=== PATIENT | male | born 1985 | race Caucasian/White ===

== ENCOUNTER 2016-11-09 13:50 | Inpatient (IN) | payer OTHER ==
[~2016-11-09] VITALS: Ht 180.3 cm; Wt 74.2 kg
[2016-11-09 15:20] VITALS: BP 121/58; PULSE 81; RESP 17; TEMP 97.8; O2SAT 98
[2016-11-09] MEDS ORDERED: LORazepam 2 MG/ML VIAL IM PRN (17:15)
[2016-11-09] MEDS ORDERED: MAGNESIUM HYDROXIDE SUSP 30 ML CUP PO PRN (17:15)
[2016-11-09] MEDS ORDERED: ALUMINUM/MAGNESIUM/SIMETH 30 ML CUP PO PRN (17:15)
[2016-11-09 20:45] VITALS: BP_SYST 116; BP_SYST 119; BP_DIAS 57; BP_DIAS 72; PULSE 73; PULSE 98; RESP 16; RESP 18; TEMP 98; TEMP 98.1; O2SAT 98; O2SAT 99
[2016-11-09] MEDS: ACETAMINOPHEN 325 MG TAB PO PRN (20:53)
[2016-11-09] MEDS: LORazepam 1 MG TAB PO PRN (20:54)
[2016-11-09] MEDS: REMOVE OLD NICOTINE PATCH T-DERMAL SCH (21:00)
[2016-11-10 06:35] VITALS: BP 100/61; PULSE 76; RESP 18; TEMP 97.3; O2SAT 100
[2016-11-10 07:59] LABS: ANION GAP 6 MEQ/L (5-15); BICARBONATE 27.8 MEQ/L (21.0-32.0); BLOOD UREA NITROGEN 14 MG/DL (7-18); CHLORIDE 104 MEQ/L (98-107); GLOMERULAR FILTRATION RATE 104 ML/MIN (>89); SODIUM (NA) 138 MEQ/L (136-145)
[2016-11-10 08:01] LABS: HDL CHOLESTEROL 51.1 MG/DL (40.0-60.0); LDL CHOLESTEROL 91 MG/DL (0-99)
[2016-11-10] MEDS: NICOTINE 21 MG/24 HR PATCH T-DERMAL SCH (08:23)
--- NOTE | 2016-11-10 09:59 | HHI.HP ---
Provisional Diagnosis Admission Date Nov 09, 2016 at 13:50 [place] I. Adjustment disorder with depressed mood History of substance abuse. [place] II. Passive-dependent trait [place] III. Please see the emergency room evaluation from [facility] [place] IV. Moderate stress difficulty coping [place] V. GAF of 45 Certification of Person's Competence To Provide Express and Informed Consent I have personally examined Marlon Cano , a person being served at [facility] on, Nov 10, 2016 09:50. Express and informed consent means consent voluntarily given in writing, by a competent person, after sufficient explanation and disclosure of the subject matter involved to enable the person to make a knowing and willful decision without any element of force, fraud, deceit, duress, or other form of constraint or coercion. This person is 18 years of age or older, is not now known to be incompetent to consent to treatment with a guardian advocate, and does not have a health care surrogate or proxy currently making medical treatment decisions. I have found this person to be one of the following: [x] Competent to provide express and informed consent, as defined above, for voluntary admission to this facility and is competent to provide express and informed consent for treatment. He/she has the consistent capacity to make well reasoned, willful, and knowing decisions concerning his or her medical or mental health treatment. The person fully and consistently understands the purpose of the admission for examination/placement and is fully capable of personally exercising all rights assured under [place] Incompetent to provide express and informed consent to voluntary admission, and this is incompetent to provide express and informed consent to treatment. The person must be transferred to involuntary status and a petition for a guardian advocate filed with the Circuit Court. [] Refusing to provide express and informed consent to voluntary admission but is competent to provide express and informed consent for treatment. The person must be discharged or transferred to involuntary status. Form shall be completed within 24 hours of a person's arrival at the receiving facility and filed in the clinical record of each person: 1. Admitted on a voluntary basis 2. Permitted to provide express and informed consent to his/her own treatment 3. Allowed to transfer from involuntary to voluntary status 4. Prior to permitting a person to consent to his or her own treatment after having been previously found incompetent to consent to treatment. History of Present Illness Capacity: Has Capacity HPI This is a 31-year-old white male who was admitted under Danie act from [place] because of feeling depressed. Patient claimed that he accidentally hurt his right thumb and they had to amputate part of it few days ago and he went to the hospital because he thought it was infected. 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 Patient denies any suicidal ideation intentions or plan denied any auditory or visual hallucinations denied any alcohol or drug use and/or abuse he does admit to history of alcohol and drug abuse and has been through the rehabilitation 3 times in the past. He also was released from the penitentiary after one year for grand theft but he is clean for past several months. He is worried about losing his job. His mother of cancer 2 years ago. Patient is cooperative and willing to sign voluntary and take medication. And participate in treatment Review of Systems Except as stated in HPI: all other systems reviewed are Neg Psychiatric: COMPLAINS OF: Depression Past Psych History Psychological trauma history Patient denied any physical verbal or sexual abuse growing up Violence risk - others (6 mos) Patient denies Violence risk - self (6 mos) Patient denies any suicidal ideation intentions or plan Substance Abuse History Drugs/Alcohol past 12 months Does admit to occasional alcohol and drug abuse Past Family Social History Coded Allergies: No Known Allergies (Unverified , 11/09/16) Current Medications Medications (Trade) Dose Ordered Sig/Dung Route Start Time Stop Time Status Last Admin (Ativan) 1 mg Q6H PRN PO 11/09/16 17:15 11/09/16 20:54 (Ativan Inj) 1 mg Q6H PRN IM 11/09/16 17:15 (Tylenol) 650 mg Q4H PRN PO 11/09/16 17:15 11/09/16 20:53 (Milk Of Magnesia Liq) 30 ml DAILY PRN PO 11/09/16 17:15 (Mag-Al Plus Susp Liq) 30 ml Q6H PRN PO 11/09/16 17:15 (Habitrol 21 Mg Patch.24 Hr) 1 patch DAILY T-DERMAL 11/10/16 09:00 11/10/16 08:23 Miscellaneous Information 1 HS T-DERMAL 11/09/16 21:00 Family History Positive for depression and alcoholism in his brother Social History Patient was born in [place]. He has one older brother. Patient is the youngest in the family. Being the youngest he was closer to his mother and somewhat spoiled. Patient denied any physical verbal or sexual abuse growing up. He quit in ninth grade because he found a job is planning on getting his GED. 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 He has not been but he has 2 children out of wedlock. He started to do alcohol and drug at young age and has been through the rehabilitation 3 times he claimed that he also liked cocaine and opiates. He was in the penitentiary for one year for grand theft and released in 2016. And he has been clean. He has been hospitalized at [facility]. Denied any suicide attempt. Patient's Strengths (min. 2) Patient is cooperative willing to sign voluntary and take medication Physical Exam Patient denied any physical complaint other than the right thumb. He was medically cleared and was [place] acted to come here for depression Vital Signs Vital Signs Date Time Temp Pulse Resp B/P Pulse Ox O2 Delivery O2 Flow Rate FiO2 11/10/16 06:35 97.3 76 18 100/61 100 Mental Status Examination This is a 31-year-old white male who looks about the same as his stated age was alert oriented 3 cooperative casually dressed his speech was slow without any evidence of loose associations or flights of ideas or pressure speech his mood was described as frustrated for being here he denied any suicidal ideation intentions or plan he claimed that the Celexa has helped him in the past and willing to take it. Denied any auditory or visual hallucinations. Denied any paranoid delusion. He seems to be of average intelligence with fairly good memory his insight is fair and his judgment seems to be okay on hypothetical situation. His gait is normal his language is normal fund of knowledge is average Assessment & Plan Problem List: (1) Adjustment disorder with depressed mood ICD Code: F43.21 Assessment & Plan Estimated LOS:3 days. This is a 31-year-old white to male who was admitted under [facility] because he was feeling depressed following the loss of his right thumb as an accident. Patient is a construction site crossing guard. He is worried about losing his job. He denied any suicidal ideation intentions or plan. Willing to take the medication and follow-up as an outpatient once stable and discharge. Admitted to observe evaluate and treat. Patient is willing to sign voluntary. Patient will participate in all the therapeutic activity on the floor. We will start him on the Celexa. Side effect another alternative treatment were explained to the patient. media services director to assist in aftercare and discharge planning. We will have LMD take a look at his physical problem especially right thumb Request HC Surrog/Guard Advoc?: No Huey Edge MD Nov 10, 2016 09:59
[2016-11-10] MEDS: CITALOPRAM HYDROBROMIDE 20 MG TAB PO SCH (10:57)
[2016-11-10] MEDS: ACETAMINOPHEN 325 MG TAB PO PRN (10:58)
--- NOTE | 2016-11-10 14:51 | PD.CONS ---
HPI Service [facility] Consult Requested By Psychiatry team Reason for Consult Medical management right thumb amputation Primary Care Physician Unknown Diagnoses: History of Present Illness Patient is a 31-year-old white male who came in under [facility] act from [facility] secondary to feeling depressed. Patient states that he accidentally hurt his right thumb and was seen in [facility]. States they try to save the right thumb by putting him on IV antibiotics but unfortunately to have the amputated due to necrosis. Amputation was done a few days back and sutures where placed. He was given Bactrim on discharge at [facility] to be taken for 7 days. He was discharged from [facility] 11/06/16, but he was too concerned about his right thumb that he went to [facility] for evaluation. 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 Patient denies any suicidal ideation intentions or plan denied any auditory or visual hallucinations denied any alcohol or drug use and/or abuse he does admit to history of alcohol and drug abuse and has been through the rehabilitation 3 times in the past. He also was released from the longterm after one year for grand theft but he is clean for past several months. He is worried about losing his job. His mother of cancer 2 years ago. He is now admitted to inpatient psychiatry unit for further evaluation. Consulted for medical management. Patient seen today. He is concerned about his right thumb. Complaints of occasional phantom pain, requesting for cast cover. No erythema or drainage noted on the wound site, sutures intact. Patient reports history of IV drug abuse, hep C. Otherwise, denies SOB/ dyspnea. Denies chest pain, palpitations , headaches, dizziness. Denies fevers, chills, n/v/d. Review of Systems Other Negative except for what is noted on history of present illness. Past Family Social History Allergies: Coded Allergies: No Known Allergies (Unverified , 11/09/16) Past Medical History Depression Back pain IV drug abuse Hepatitis C Past Surgical History Status post right thumb amputation I and D abscess from heroin use Reported Medications Celexa Nicotine patch Active Ordered Medications Current Medications Medications (Trade) Dose Ordered Sig/Dung Route Start Time Stop Time Status Last Admin (Ativan) 1 mg Q6H PRN PO 11/09/16 17:15 11/09/16 20:54 (Ativan Inj) 1 mg Q6H PRN IM 11/09/16 17:15 (Tylenol) 650 mg Q4H PRN PO 11/09/16 17:15 11/10/16 10:58 (Milk Of Magnesia Liq) 30 ml DAILY PRN PO 11/09/16 17:15 (Mag-Al Plus Susp Liq) 30 ml Q6H PRN PO 11/09/16 17:15 (Habitrol 21 Mg Patch.24 Hr) 1 patch DAILY T-DERMAL 11/10/16 09:00 11/10/16 08:23 Miscellaneous Information 1 HS T-DERMAL 11/09/16 21:00 (CeleXA) 20 mg DAILY PO 11/10/16 10:00 11/10/16 10:57 (Naprosyn) 375 mg Q8H PRN PO 11/10/16 15:30 (Bactrim Ds 800-160 Mg) 1 tab Q12H PO 11/11/16 09:00 11/17/16 08:59 Family History None Social History Reports occasional alcohol use Current day smoker 1-2 packs per day, last use about 3 weeks ago IV drug use, substance use cocaine, opiates, marijuana - last used 3 weeks ago cocaine shot Physical Exam Vital Signs Vital Signs Date Time Temp Pulse Resp B/P Pulse Ox O2 Delivery O2 Flow Rate FiO2 11/10/16 06:35 97.3 76 18 100/61 100 11/09/16 20:45 98.1 73 16 116/57 99 11/09/16 15:20 97.8 81 17 121/58 98 Physical Exam GENERAL: This is a well-nourished, well-developed patient, in no apparent distress. SKIN: No rashes, ecchymoses or lesions. Cool and dry. HEAD: Atraumatic. Normocephalic. No temporal or scalp tenderness. EYES: Pupils equal round and reactive. Extraocular motions intact. No scleral icterus. No injection or drainage. ENT: Nose without bleeding. Throat without erythema. Uvula midline. Airway patent. NECK: Trachea midline. No JVD or lymphadenopathy. Supple, nontender, no meningeal signs. CARDIOVASCULAR: Regular rate and rhythm without murmurs, gallops, or rubs. RESPIRATORY: Clear to auscultation. Breath sounds equal bilaterally. No wheezes , rales, or rhonchi. GASTROINTESTINAL: Abdomen soft, non-tender, nondistended. No guarding. MUSCULOSKELETAL: Extremities without clubbing, cyanosis, or edema. No joint tenderness, effusion, or edema noted. No calf tenderness. Negative Homans sign bilaterally. Right thumb without erythema, or edema, sutures CDI, nontender to palpation surrounding areas. NEUROLOGICAL: Awake and alert. Motor and sensory grossly within normal limits. Five out of 5 muscle strength in all muscle groups. Normal speech. Laboratory Laboratory Tests Test 11/10/16 06:41 Sodium Level 138 Potassium Level 4.0 Chloride Level 104 Carbon Dioxide Level 27.8 Anion Gap 6 Blood Urea Nitrogen 14 Creatinine 0.86 Estimat Glomerular Filtration 104 Rate Random Glucose 86 Calcium Level 9.0 Triglycerides Level 98 Cholesterol Level 162 LDL Cholesterol 91 HDL Cholesterol 51.1 Cholesterol/HDL Ratio 3.17 Result Diagram: 11/10/16 0641 Assessment and Plan Problem List: (1) Adjustment disorder with depressed mood ICD Code: F43.21 Status: Acute (2) S/P amputation of thumb ICD Code: Z89.019 Status: Acute Assessment and Plan Patient is a 31-year-old male who came in under [facility] act from [facility] secondary to suicidal ideation. He is status post right thumb amputation for [facility]. Admitted to inpatient psychiatry unit. Consulted for medical management. Adjustment disorder with depressed mood - managed by psychiatry team Right thumb amputation - sutures intact, DC sutures in 10 days. - [employer] service for splint - Wound care - Naprosyn for pain. - Bactrim DS 1 tab twice a day 7 days Hyperglycemia. A1c pending Transaminitis secondary to hepatitis C. Monitor Polysubstance abuse. Patient counseled Tobacco use - counseled. Nicotine patch. Thank you for this consultation. We will follow patient with you. Written by Tracie Cortez, acting as scribe for Dr. Emmanuel on 11/10/16 at 15:29. The documentation accurately reflects the work performed [id number] by me on at 16:44. Code Status Full code Discussed Condition With Patient, nursing Tracie Miguel Nov 10, 2016 14:51 Jerome Emmanuel MD Nov 10, 2016 16:38
[2016-11-10] MEDS ORDERED: NAPROXEN 375 MG TAB PO PRN (15:30)
[2016-11-10] MEDS ORDERED: SULFAMETHOXAZOLE-TRIMETHOPRIM DS 800-160 MG TAB PO ONE (15:30)
[2016-11-10 15:56] LABS: HEMOGLOBIN A1a 1.2 %; HEMOGLOBIN A1b 0.9 %; HEMOGLOBIN Ao 84.4 %; HEMOGLOBIN F 1.4 %; HEMOGLOBIN LA1C 1.9 %; HEMOGLOBIN P3 3.8 %
[2016-11-10] MEDS: LORazepam 1 MG TAB PO PRN (16:04)
[2016-11-10 19:29] VITALS: BP 117/60; PULSE 64; RESP 18; TEMP 98.5; O2SAT 100
[2016-11-10] MEDS: REMOVE OLD NICOTINE PATCH T-DERMAL SCH (21:00)
[2016-11-11] MEDS: LORazepam 1 MG TAB PO PRN (00:02)
[2016-11-11 05:36] VITALS: BP 108/67; PULSE 74; RESP 16; TEMP 98.2; O2SAT 96
[2016-11-11] MEDS: NICOTINE 21 MG/24 HR PATCH T-DERMAL SCH (09:00)
[2016-11-11] MEDS: CITALOPRAM HYDROBROMIDE 20 MG TAB PO SCH (09:00)
[2016-11-11] MEDS ORDERED: SULFAMETHOXAZOLE-TRIMETHOPRIM DS 800-160 MG TAB PO SCH (09:00)
[2016-11-11] MEDS: REMOVE OLD NICOTINE PATCH T-DERMAL SCH (09:54)
--- NOTE | 2016-11-11 10:06 | HHI.DS ---
Psychiatry Discharge Summary Inpatient Psychiatric care?: Yes Advance Directive: No Reason Not Provided: refused Mental Health AdvanceDirective: No Health Care Proxy: No Admission Admission Date Nov 09, 2016 at 13:50 Admission Diagnosis: (1) Adjustment disorder with depressed mood ICD Code: F43.21 GAF Score: 45 Brief History This is a 31-year-old white male who was admitted under Danie act from [place] because of feeling depressed. Patient claimed that he accidentally hurt his right thumb and they had to amputate part of it few days ago and he went to the hospital because he thought it was infected. 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 Patient denies any suicidal ideation intentions or plan denied any auditory or visual hallucinations denied any alcohol or drug use and/or abuse he does admit to history of alcohol and drug abuse and has been through the rehabilitation 3 times in the past. He also was released from the penitentiary after one year for grand theft but he is clean for past several months. He is worried about losing his job. His mother of cancer 2 years ago. Patient is cooperative and willing to sign voluntary and take medication. And participate in treatment Tobacco Use In Past 30 Days: 5 or More Cigarettes/Day Alcohol Use: 4 or More Times Per Week Hospital Course Patient was admitted was started on supportive treatment. Patient kept to himself. Most of the time. No behavior or management problem reported. Patient claimed that he has been depressed because of the loss of his thumb but denied any suicidal ideation intentions or plan. Denied any auditory or visual hallucinations. He is not abusing any drugs at the present time he wants to go home willing to follow-up as an outpatient and abstain from any substance use and/or abuse at that point arrangements were made for him to be discharged Results Blood Pressure 108 / 67 Vital Signs Date Time Temp Pulse Resp B/P Pulse Ox O2 Delivery O2 Flow Rate FiO2 11/11/16 05:36 98.2 74 16 108/67 96 Laboratory Results Test 11/10/16 06:41 Hemoglobin A1c 6.0 % (4.3-6.0) Triglycerides Level 98 MG/DL (42-150) Cholesterol Level 162 MG/DL (120-200) LDL Cholesterol 91 MG/DL (0-99) HDL Cholesterol 51.1 MG/DL (40.0-60.0) Summary of Major Lab Results Nothing significant Summary of Procedures None Imaging None Pending results at discharge: No Medications # of Antipsychotic meds at D/C: 0 Approp Antipsych med options 1 - Minimum of three failed multiple trials of monotherapy. 2 - Documented plan to taper to monotherapy due to previous use of multiple meds OR cross-taper in progress at D/C. 3 - Documentation of augmentation of Clozapine. 4 - Justification other than those listed in allowable values 1-3, document here : Discharge Discharge Date: Nov 11, 2016 Discharge Diagnosis: (1) Adjustment disorder with depressed mood Diagnosis: Principal ICD Code: F43.21 Mental Status Exam at Disch Patient was alert ordered at 3 cooperative casually dressed. His speech was clear spontaneous without any evidence of loose associations. He denied any suicidal ideation intentions or plan his thoughts were organized denied any auditory or visual hallucinations. He is willing to follow-up as an outpatient and abstain from any substance abuse. Pt Condition on Discharge: Stable Discharge Disposition: Discharge Home Discharge Instructions Diet Instructions: As Tolerated, No Restrictions Activities you can perform: Regular-No Restrictions Scheduled Appointment: Rah Leyva Discharge Time <= 30 minutes Discharge/Advance Care Plan Health Problems: (1) Adjustment disorder with depressed mood Goals to promote your health * To prevent worsening of your condition and complications * To maintain your health at the optimal level Directions to meet your goals Take your medications as prescribed Follow your dietary instruction Follow activity as directed Keep your appointments as scheduled Take your immunizations and boosters as scheduled If your symptoms worsen call your PCP, if no PCP go to Urgent Care Center or Emergency Room For 01/05 questions related to your inpatient stay or results of tests pending at discharge, please contact Dr. Huey Edge at Smoking is Dangerous to Your Health. Avoid second hand smoking Huey Edge MD Nov 11, 2016 10:06
[2016-11-11] MEDS ORDERED: CELE20TA PO (10:07)
== END 2016-11-11 12:45 | disposition home or self-care (01) | DRG 881 ==
LOC: H260 13:50
PROVIDERS: ADMIT Psychiatry & Neurology Psychiatry; ATTEND Psychiatry & Neurology Psychiatry
DX: F43.21 Adjustment disorder with depressed mood (principal); G54.6 Phantom limb syndrome with pain; R73.9 Hyperglycemia, unspecified; B19.20 Unspecified viral hepatitis C without hepatic coma; F17.210 Nicotine dependence, cigarettes, uncomplicated
CPT/HCPCS: 80048; 80061; 83036